=== PATIENT | male | born 1985 | race Caucasian/White ===

== ENCOUNTER 2016-07-28 15:42 | Emergency (ER) | payer MEDICAID ==
[~2016-07-28] VITALS: Ht 200.7 cm; Wt 97.5 kg
--- NOTE | 2016-07-28 16:20 | ED GI ---
General Chief Complaint: Rect Problems Stated Complaint: BLOOD IN STOOL Nursing Triage Note: Pt reports having large amount red blood in BM last night and 2 more this AM. Pt has been on anti-inflammatory medication x 2 weeks for joint inflammation. denies abd pain, cramping, or n/v/diarrhea. Sepsis Screen: No Definite Risk History of Present Illness Time Seen By Provider: 16:00 Initial Comments Evaluation for 3 stools in last 24 hours with visible blood in stools and toilet. He denies any abdominal pain, distention, or concerns. He's had no nausea vomiting or diarrhea. He does report a history of constipation and having to strain to have bowel movements. He was recently started on anti- inflammatory for arthritis and physical therapy. He is currently unemployed. He has very little water intake in his diet he mainly drink Sprite. He also eats very few vegetables and fruits, dislikes yogurt. He has been told to increase fiber in his diet on multiple occasions. His mother had similar symptoms several years ago and required a colonoscopy which found anal fissures and no other pathology. Current medications include meloxicam and omeprazole. Timing/Duration: 1-2 Days Severity/Quality: Mild Activities at Onset: None Associated Symptoms: Denies Symptoms, No Back Pain, No Fever/Chills, No Fatigue , No Nausea/Vomiting, No Weakness Allergies and Home Medications Allergies Coded Allergies: No Known Drug Allergies (Unverified , 07/28/16) Review of Systems Constitutional: no symptoms reported, see HPI EENTM: No Symptoms Reported, See HPI Respiratory: No Symptoms Reported, See HPI Cardiovascular: No Symptoms Reported, See HPI Gastrointestinal: See HPI, Denies Abdomen Distended, Denies Abdominal Pain, Blood Streaked Stools, Denies Constipated, Denies Diarrhea, Denies Nausea, Denies Poor Appetite, Denies Poor Fluid Intake, Rectal Bleeding, Denies Vomiting Genitourinary: No Symptoms Reported, See HPI Musculoskeletal: no symptoms reported, see HPI Skin: no symptoms reported, see HPI Psychiatric/Neurological: No Symptoms Reported, See HPI Endocrine: No Symptoms Reported, See HPI Hematologic/Lymphatic: No Symptoms Reported, See HPI All Other Systems Reviewed Negative Unless Noted: Yes Past Vxabjmz-Yehwtj-Vfjlqy Hx Patient Social History Alcohol Use: Rarely Uses Recreational Drug Use: No Smoking Status: Never a Smoker 2nd Hand Smoke Exposure: No Recent Foreign Travel: No Contact w/Someone Who Travel: No Recent Infectious Disease Expo: No Recent Hopitalizations: No Immunizations Up To Date Tetanus Booster (TDap): Less than 5yrs Seasonal Allergies Seasonal Allergies: Yes Gastrointestinal Gastrointestinal Disorders: Gastroesophageal Reflux, Chronic Constipation Musculoskeletal Musculoskeletal Disorders: Arthritis Reviewed Nursing Assessment Reviewed/Agree w Nursing PMH: Yes Physical Exam Vital Signs VS - Last 72 Hours, by Label 07/28/16 15:47 Pulse 53 Resp 18 B/P (MAP) 134/83 O2 Delivery Room Air Capillary Refill : Less Than 3 Seconds General Appearance: WD/WN, no apparent distress Neck: non-tender, full range of motion, supple, normal inspection Respiratory: chest non-tender, lungs clear, normal breath sounds, no respiratory distress, no accessory muscle use Cardiovascular: normal peripheral pulses, regular rate, rhythm, no edema, no murmur Gastrointestinal: normal bowel sounds, non tender, soft, no organomegaly, No distended, No guarding, No rebound Extremities: normal range of motion, non-tender, normal inspection, no pedal edema, no calf tenderness, normal capillary refill Neurologic/Psychiatric: no motor/sensory deficits, alert, normal mood/affect, oriented x 3 Skin: normal color, warm/dry Lymphatic: no adenopathy Progress/Results/Core Measures Results/Orders Lab Results Laboratory Tests Test 07/28/16 16:31 Range/Units White Blood Count 6.3 4.3-11.0 10^3/uL Red Blood Count 4.76 4.35-5.85 10^6/uL Hemoglobin 14.0 13.3-17.7 G/DL Hematocrit 43 40-54 % Mean Corpuscular Volume 89 80-99 FL Mean Corpuscular Hemoglobin 29 25-34 PG Mean Corpuscular Hemoglobin Concent 33 32-36 G/DL Red Cell Distribution Width 12.7 10.0-14.5 % Platelet Count 205 130-400 10^3/uL Mean Platelet Volume 10.0 7.4-10.4 FL Neutrophils (%) (Auto) 62 42-75 % Lymphocytes (%) (Auto) 28 12-44 % Monocytes (%) (Auto) 10 0-12 % Eosinophils (%) (Auto) 1 0-10 % Basophils (%) (Auto) 0 0-10 % Neutrophils # (Auto) 3.9 1.8-7.8 X 10^3 Lymphocytes # (Auto) 1.7 1.0-4.0 X 10^3 Monocytes # (Auto) 0.6 0.0-1.0 X 10^3 Eosinophils # (Auto) 0.1 0.0-0.3 10^3/uL Basophils # (Auto) 0.0 0.0-0.1 10^3/uL Sodium Level 141 135-145 MMOL/L Potassium Level 4.0 3.6-5.0 MMOL/L Chloride Level 109 H 98-107 MMOL/L Carbon Dioxide Level 24 21-32 MMOL/L Anion Gap 8 5-14 MMOL/L Blood Urea Nitrogen 15 7-18 MG/DL Creatinine 1.18 0.60-1.30 MG/DL Estimat Glomerular Filtration Rate > 60 BUN/Creatinine Ratio 13 Glucose Level 90 70-105 MG/DL Calcium Level 9.3 8.5-10.1 MG/DL Total Bilirubin 0.8 0.1-1.0 MG/DL Aspartate Amino Transf (AST/SGOT) 20 5-34 U/L Alanine Aminotransferase (ALT/SGPT) 20 0-55 U/L Alkaline Phosphatase 33 L 40-136 U/L Total Protein 7.2 6.4-8.2 G/DL Albumin 4.2 3.2-4.5 G/DL My Orders Orders - ELLY ROBBINS Cbc With Automated Diff (07/28/16 16:18) Comprehensive Metabolic Panel (07/28/16 16:18) Vital Signs/I&O Vital Sign - Last 12Hours 07/28/16 15:47 Pulse 53 Resp 18 B/P (MAP) 134/83 O2 Delivery Room Air Blood Pressure Mean: 100 Progress Note : Time: 16:00 Progress Note Evaluation completed, recommended obtaining a CBC and CMP. Will reevaluate after these are completed. 1700 discussed results of labs which were essentially normal showing no signs of anemia. Discussed that the possible causes could be anal fissures or hemorrhoids secondary to his constipation. However with the bleeding I would recommend stopping the anti-inflammatories at this time. He verbalized understanding this discussed ways to help illuminate the constipation and he will consider these. He will follow-up with Dr. Cardona for other treatment options for his arthritis, until then he can use Tylenol. Departure Impression Impression: Primary Impression: Blood in stool Disposition: HOME, SELF-CARE Condition: Stable Departure-Patient Inst. Decision time for Depature: 16:45 Referrals: NATTY CARDONA MD (PCP) Primary Care Physician [facility] (Family) Primary Care Physician Patient Instructions: Bloody Stools, Adult (DC), Anal Fissure (DC), Hemorrhoids (DC) Add. Discharge Instructions: Increase fiber and water in diet. Start taking Probiotic, over the counter. Stop taking anti-inflammatory, use Tylenol 650 mg every 6 hours as needed. Keep follow-up appointment Dr. Cardona to consider additional treatment as needed. Return to emergency department if bleeding becomes more profuse, any dizziness or change in level of consciousness, new problems or concerns All discharge instructions reviewed with patient and/or family. Voiced understanding. Copy Copies To 1: NATTY CARDONA MD, AMY ARNP Jul 28, 2016 16:20
[2016-07-28 16:40] LABS: BASOPHILS % (AUTO) 0 % (0-10); EOSINOPHILS # (AUTO) 0.1 10^3/uL (0.0-0.3); EOSINOPHILS % (AUTO) 1 % (0-10); LYMPHOCYTES # (AUTO) 1.7 X 10^3 (1.0-4.0); LYMPHOCYTES % (AUTO) 28 % (12-44); MEAN CORPUSCULAR HEMOGLOBIN 29 PG (25-34); MEAN CORPUSCULAR HGB CONC 33 G/DL (32-36); MEAN CORPUSCULAR VOLUME 89 FL (80-99); MONOCYTES # (AUTO) 0.6 X 10^3 (0.0-1.0); MONOCYTES % (AUTO) 10 % (0-12); NEUTROPHILS # (AUTO) 3.9 X 10^3 (1.8-7.8); NEUTROPHILS % (AUTO) 62 % (42-75); PLATELET COUNT 205 10^3/uL (130-400); RED BLOOD COUNT 4.76 10^6/uL (4.35-5.85); RED CELL DISTRIBUTION WIDTH 12.7 % (10.0-14.5); WHITE BLOOD COUNT 6.3 10^3/uL (4.3-11.0)
[2016-07-28 16:55] LABS: ALANINE AMINOTRANSFERASE 20 U/L (0-55); ALBUMIN 4.2 G/DL (3.2-4.5); ANION GAP 8 MMOL/L (5-14); ASPARTATE AMINO TRANSFERASE 20 U/L (5-34); BILIRUBIN,TOTAL 0.8 MG/DL (0.1-1.0); BLOOD UREA NITROGEN 15 MG/DL (7-18); BUN/CREATININE RATIO 13; CALCIUM 9.3 MG/DL (8.5-10.1); CARBON DIOXIDE 24 MMOL/L (21-32); CHLORIDE 109 MMOL/L (98-107); CREATININE SERUM 1.18 MG/DL (0.60-1.30); GFR ESTIMATED > 60; GLUCOSE 90 MG/DL (70-105); SODIUM 141 MMOL/L (135-145); TOTAL PROTEIN 7.2 G/DL (6.4-8.2)
[2016-07-28 18:00] VITALS: BP 134/83
[2016-07-29] MEDS ORDERED: HYDR-757 PO (11:00)
== END 2016-07-28 18:00 | disposition home or self-care (01) ==
LOC: EDUNIT# 15:42 → ER 15:43
DX: K92.1 Melena (principal); K21.9 Gastro-esophageal reflux disease without esophagitis
CPT/HCPCS: 36415; 80053; 85025; 99282

== ENCOUNTER 2016-07-29 10:31 | Emergency (ER) | payer MEDICAID ==
[~2016-07-29] VITALS: Ht 200.7 cm; Wt 97.5 kg
--- NOTE | 2016-07-29 10:48 | ED Lower Extremity ---
General Stated Complaint: R BIG TOE PAIN,BRUISING Source: patient Exam Limitations: no limitations History of Present Illness Time seen by provider: 10:47 Initial Comments To ER with limited mobility and bruising of the right great toe after stubbing it on his front porch yesterday. Onset: yesterday Severity: moderate Pain/Injury Location: right 1st toe Method of Injury: unknown Modifying Factors: Worse With Movement Allergies and Home Medications Allergies Coded Allergies: No Known Drug Allergies (Unverified , 07/28/16) Home Medications Hydrocodone/Acetaminophen 1 Each Tablet, 1 EACH PO Q4H PRN for PAIN-MODERATE TO SEVERE, #10 Prescribed by: ARLYN GUILLERMO on 07/29/16 1100 Time Seen by Provider: 10:47 Constitutional: see HPI EENTM: see HPI Respiratory: no symptoms reported Cardiovascular: no symptoms reported Genitourinary: no symptoms reported Musculoskeletal: see HPI Skin: no symptoms reported Psychiatric/Neurological: No Symptoms Reported Past Chpjlhw-Uotclu-Wohcvv Hx Patient Social History 2nd Hand Smoke Exposure: No Recent Foreign Travel: No Contact w/Someone Who Travel: No Recent Hopitalizations: No Immunizations Up To Date Tetanus Booster (TDap): Less than 5yrs Seasonal Allergies Seasonal Allergies: Yes Gastrointestinal Gastrointestinal Disorders: Gastroesophageal Reflux, Chronic Constipation Musculoskeletal Musculoskeletal Disorders: Arthritis Physical Exam Vital Signs Vital Sign - Last 12Hours 07/29/16 10:38 Temp 98.0 Pulse 46 Resp 16 B/P (MAP) 134/79 Pulse Ox 97 O2 Delivery Room Air Capillary Refill : General Appearance: WD/WN, no apparent distress HEENT: PERRL/EOMI, normal ENT inspection Neck: non-tender, full range of motion Respiratory: normal breath sounds, no respiratory distress, no accessory muscle use Gastrointestinal: normal bowel sounds, non tender, soft Hips: bilateral hip non-tender, bilateral hip normal inspection, bilateral hip normal range of motion Legs: bilateral leg non-tender, bilateral leg normal inspection, bilateral leg normal range of motion Knees: bilateral knee non-tender, bilateral knee normal inspection, bilateral knee normal range of motion Ankles: bilateral ankle non-tender, bilateral ankle normal inspection, bilateral ankle normal range of motion Feet: right foot pain, right foot soft tissue tenderness, right foot other ( ecchymosis to the dorsal aspect of the right great toe) Neurologic/Psychiatric: alert, normal mood/affect, oriented x 3 Skin: normal color, warm/dry Progress/Results/Core Measures Results/Orders My Orders Orders - ARLYN GUILLERMO APRN Foot, Right, 3 View (07/29/16 10:46) Vital Signs/I&O Vital Sign - Last 12Hours 07/29/16 07/29/16 10:38 11:05 Temp 98.0 98.0 Pulse 46 46 Resp 16 16 B/P (MAP) 134/79 Pulse Ox 97 97 O2 Delivery Room Air Departure Impression Impression: Primary Impression: Toe fracture Disposition: HOME, SELF-CARE Condition: Stable Departure-Patient Inst. Decision time for Depature: 10:48 Referrals: NATTY LEVINE MD (PCP) Primary Care Physician [facility] (Family) Primary Care Physician IRMA SCHOFIELD DPM, CORIN Q DPM Patient Instructions: Toe Fracture (DC) Add. Discharge Instructions: 1. Keep the great toe nahid taped to the toe next to it for the next 3 weeks. 2. Ice pack 3. Pain medication as directed and return to ER for any worsening 4. If pain and limited mobility persists beyond the initial 3 weeks, follow-up with one of the foot specialists listed. Scripts Hydrocodone/Acetaminophen (Rough And Ready 5-325 Tablet) 1 Each Tablet 1 EACH PO Q4H Y for PAIN-MODERATE TO SEVERE, #10 TAB Prov: ARLYN GUILLERMO APRN 07/29/16 ARLYN GUILLERMO APRN Jul 29, 2016 10:48
[2016-07-29] MEDS ORDERED: HYDR-757 PO (11:00)
[2016-07-29 11:05] VITALS: BP 134/79
--- NOTE | 2016-07-29 11:09 | Diagnostic Imaging Report ---
Three views of the right foot. INDICATION: Injury. FINDINGS: There is a 3 mm bony fragment seen along the dorsomedial aspect of the base of the distal phalanx of the great toe. This is only seen on the oblique view and it has margins in favor of an acute fracture. This involves the dorsal medial aspect of the articular surface. The rest of the distal phalanx and interphalangeal joints appear unremarkable. No other fracture seen. IMPRESSION: 3 mm nondisplaced fracture along the dorsal medial aspect of the base of the distal phalanx of the great toe. Dictated by: Dictated on workstation # [id number]
== END 2016-07-29 11:05 | disposition home or self-care (01) ==
LOC: EDUNIT# 10:31 → ER 10:33
DX: S92.403A Displaced unspecified fracture of unspecified great toe, initial encounter for closed fracture (principal); W20.8XXA Other cause of strike by thrown, projected or falling object, initial encounter
CPT/HCPCS: 73630; 99283

== ENCOUNTER 2016-08-13 11:26 | Outpatient (RCR) | payer MEDICAID ==
[~2016-08-13 11:26] MED LIST: HYDR-757 PO
== END 2016-09-28 15:20 | disposition home or self-care (01) ==
PROVIDERS: ATTEND Family Medicine
DX: M54.5 Low back pain (principal)

== ENCOUNTER 2021-07-16 20:02 | Emergency (ER) | payer MEDICAID ==
[~2021-07-16] VITALS: Ht 204.2 cm; Wt 98.0 kg
[~2021-07-16 20:02] MED LIST changes: +HYDR-4226 PO; -HYDR-757 PO
[2021-07-16 21:18] LABS: BILIRUBIN,URINE NEGATIVE (NEGATIVE); CLARITY,URINE CLEAR; COLOR,URINE DARK YELLOW; GLUCOSE, URINE (UA) NEGATIVE (NEGATIVE); KETONES,URINE NEGATIVE (NEGATIVE); LEUKOCYTE ESTERASE ,URINE NEGATIVE (NEGATIVE); NITRITE,URINE NEGATIVE (NEGATIVE); PROTEIN,URINE NEGATIVE (NEGATIVE)
[2021-07-16 21:26] LABS: BASOPHILS % (AUTO) 1 % (0-10); EOSINOPHILS % (AUTO) 1 % (0-10); HEMATOCRIT 45 % (40-54); HEMOGLOBIN 15.1 g/dL (13.3-17.7); LYMPHOCYTES # (AUTO) 0.4 10^3/uL (1.0-4.0); LYMPHOCYTES % (AUTO) 6 % (12-44); MEAN CORPUSCULAR HEMOGLOBIN 30 pg (25-34); MEAN CORPUSCULAR HGB CONC 34 g/dL (32-36); MEAN CORPUSCULAR VOLUME 88 fL (80-99); MEAN PLATELET VOLUME 9.4 fL (9.0-12.2); MONOCYTES # (AUTO) 0.8 10^3/uL (0.0-1.0); MONOCYTES % (AUTO) 13 % (0-12); NEUTROPHILS # (AUTO) 4.8 10^3/uL (1.8-7.8); NEUTROPHILS % (AUTO) 80 % (42-75); PLATELET COUNT 184 10^3/uL (130-400); WHITE BLOOD COUNT 6.1 10^3/uL (4.3-11.0)
[2021-07-16 21:30] LABS: BACTERIA,URINE NEGATIVE /HPF; WBC,URINE 0-2 /HPF
[2021-07-16 21:34] LABS: ALBUMIN 4.6 GM/DL (3.2-4.5); CHLORIDE 101 MMOL/L (98-107); POTASSIUM 4.1 MMOL/L (3.6-5.0); SODIUM 137 MMOL/L (135-145)
[2021-07-16 21:35] LABS: CALCIUM 9.6 MG/DL (8.5-10.1)
[2021-07-16 21:37] LABS: GLUCOSE 100 MG/DL (70-105); TOTAL PROTEIN 7.8 GM/DL (6.4-8.2)
[2021-07-16 21:38] LABS: CARBON DIOXIDE 22 MMOL/L (21-32)
[2021-07-16 21:40] LABS: ALKALINE PHOSPHATASE 42 U/L (40-136); CREATININE SERUM 1.23 MG/DL (0.60-1.30); GFR ESTIMATED 77
[2021-07-16 21:41] LABS: BUN/CREATININE RATIO 8
[2021-07-16 21:43] LABS: ALANINE AMINOTRANSFERASE 22 U/L (0-55)
[2021-07-16 21:43] LABS: AMPHETAMINE SCREEN, URINE NEGATIVE (NEGATIVE); BARBITURATE SCREEN URINE NEGATIVE (NEGATIVE); BENZODIAZEPINES SCREEN URINE NEGATIVE (NEGATIVE); CANNABINOID SCREEN, URINE NEGATIVE (NEGATIVE); COCAINE SCREEN URINE NEGATIVE (NEGATIVE); METHADONE STAT NEGATIVE (NEGATIVE); OPIATE SCREEN URINE NEGATIVE (NEGATIVE); OXYCODONE STAT NEGATIVE (NEGATIVE); PROPOXYPHENE STAT NEGATIVE (NEGATIVE); TRICYCLIC ANTIDEPRESSANTS SCRE NEGATIVE (NEGATIVE)
[2021-07-16 21:54] LABS: EOSINOPHILS % (MANUAL) 2 %; LYMPHOCYTES % (MANUAL) 5 %; MONOCYTES % (MANUAL) 11 %; NEUTROPHILS % (MANUAL) 82 %; RBC MORPH NORMAL
[2021-07-16 21:55] LABS: ERYTHROCYTE SEDIMENTATION RATE 7 MM/HR (0-15)
--- NOTE | 2021-07-16 23:04 | ED General ---
General Chief Complaint: General Problems/Pain Stated Complaint: FATIGUE, BODY ACHES Nursing Triage Note: Pt to ER with complaints of generalized weakness/malaise onset 07/10/2021 after being bit by a tick. Pt reports that after removing the tick, he went to urgent care to ensure he removed the head and quick care confirmed complete removal. Since being bit, pt reports that symptoms have slowly been getting worse since. Pt is A/O x4 and 96% on Room Air. Source of Information: Patient History of Present Illness Date Seen by Provider: July 16, 2021 Allergies and Home Medications Allergies Coded Allergies: No Known Drug Allergies (Unverified , 07/28/16) Patient Home Medication List Hydrocodone/Acetaminophen (Hydrocodone/Acetaminophen 5 MG/325 MG TAB) 1 Each Tablet, 1 EACH PO Q4H PRN for PAIN-MODERATE TO SEVERE Prescribed by: ARLYN GUILLERMO on 07/29/16 1100 Past Hjwnpps-Catngn-Yukvng Hx Patient Social History Tobacco Use?: No Smoking Status: Never a Smoker Smokeless Tobacco Frequency: Never a User Use of E-Cig and/or Vaping dev: No Use of E-Cig and/or Vaping Edu: Never a User Substance use?: No Alcohol Use?: Yes Alcohol Frequency: Rarely Pt feels they are or have been: No Immunizations Up To Date Tetanus Booster (TDap): Less than 5yrs Influenza Vaccine Up-to-Date: No; Not Current Seasonal Allergies Seasonal Allergies: Yes Past Medical History Surgeries: No Respiratory: No Cardiac: No Neurological: No Genitourinary: No Gastrointestinal: Yes Gastroesophageal Reflux, Chronic Constipation Arthritis Endocrine: No HEENT: No Cancer: No Psychosocial: No Integumentary: No Blood Disorders: No Physical Exam Vital Signs Vital Signs - First Documented 07/16/21 20:40 Temp 37.2 Pulse 99 Resp 18 B/P (MAP) 118/85 (96) Pulse Ox 96 O2 Delivery Room Air Capillary Refill : Less Than 3 Seconds Height, Weight, BMI Height: 6'7.00" Weight: 215lbs. oz. 97.540040zr; 23.00 BMI Method:Stated Progress/Results/Core Measures Suspected Sepsis SIRS Temperature: Pulse: 99 Respiratory Rate: 18 Laboratory Tests 07/16/21 21:16: White Blood Count 6.1 Blood Pressure 118 /85 Mean: 96 Laboratory Tests 5/25/22 21:16: Creatinine 1.23, Platelet Count 184, Total Bilirubin 1.0 Results/Orders Lab Results Laboratory Tests Test 07/16/21 21:06 07/16/21 21:10 07/16/21 21:16 Range/Units Influenza Type A (RT-PCR) Not Detected Not Detecte Influenza Type B (RT-PCR) Not Detected Not Detecte SARS-CoV-2 RNA (RT-PCR) Detected H Not Detecte Urine Color DARK YELLOW Urine Clarity CLEAR Urine pH 6.0 5-9 Urine Specific [place] 1.020 1.016-1.022 Urine Protein NEGATIVE NEGATIVE Urine Glucose (UA) NEGATIVE NEGATIVE Urine Ketones NEGATIVE NEGATIVE Urine Nitrite NEGATIVE NEGATIVE Urine Bilirubin NEGATIVE NEGATIVE Urine Urobilinogen 0.2 < = 1.0 MG/DL Urine Leukocyte Esterase NEGATIVE NEGATIVE Urine RBC (Auto) NEGATIVE NEGATIVE Urine RBC NONE /HPF Urine WBC 0-2 /HPF Urine Squamous Epithelial Cells NONE /HPF Urine Renal Epithelial Cells NONE /HPF Urine Crystals NONE /LPF Urine Bacteria NEGATIVE /HPF Urine Casts NONE /LPF Urine Mucus MODERATE H /LPF Urine Culture Indicated NO Urine Opiates Screen NEGATIVE NEGATIVE Urine Oxycodone Screen NEGATIVE NEGATIVE Urine Methadone Screen NEGATIVE NEGATIVE Urine Propoxyphene Screen NEGATIVE NEGATIVE Urine Barbiturates Screen NEGATIVE NEGATIVE Ur Tricyclic Antidepressants Screen NEGATIVE NEGATIVE Urine Phencyclidine Screen NEGATIVE NEGATIVE Urine Amphetamines Screen NEGATIVE NEGATIVE Urine Methamphetamines Screen NEGATIVE NEGATIVE Urine Benzodiazepines Screen NEGATIVE NEGATIVE Urine Cocaine Screen NEGATIVE NEGATIVE Urine Cannabinoids Screen NEGATIVE NEGATIVE White Blood Count 6.1 4.3-11.0 10^3/uL Red Blood Count 5.06 4.30-5.52 10^6/uL Hemoglobin 15.1 13.3-17.7 g/dL Hematocrit 45 40-54 % Mean Corpuscular Volume 88 80-99 fL Mean Corpuscular Hemoglobin 30 25-34 pg Mean Corpuscular Hemoglobin Concent 34 32-36 g/dL Red Cell Distribution Width 12.3 10.0-14.5 % Platelet Count 184 130-400 10^3/uL Mean Platelet Volume 9.4 9.0-12.2 fL Immature Granulocyte % (Auto) 0 % Neutrophils (%) (Auto) 80 H 42-75 % Lymphocytes (%) (Auto) 6 L 12-44 % Monocytes (%) (Auto) 13 H 0-12 % Eosinophils (%) (Auto) 1 0-10 % Basophils (%) (Auto) 1 0-10 % Neutrophils # (Auto) 4.8 1.8-7.8 10^3/uL Lymphocytes # (Auto) 0.4 L 1.0-4.0 10^3/uL Monocytes # (Auto) 0.8 0.0-1.0 10^3/uL Eosinophils # (Auto) 0.0 0.0-0.3 10^3/uL Basophils # (Auto) 0.0 0.0-0.1 10^3/uL Immature Granulocyte # (Auto) 0.0 0.0-0.1 10^3/uL Neutrophils % (Manual) 82 % Lymphocytes % (Manual) 5 % Monocytes % (Manual) 11 % Eosinophils % (Manual) 2 % Blood Morphology Comment NORMAL Erythrocyte Sedimentation Rate 7 0-15 MM/HR Sodium Level 137 135-145 MMOL/L Potassium Level 4.1 3.6-5.0 MMOL/L Chloride Level 101 98-107 MMOL/L Carbon Dioxide Level 22 21-32 MMOL/L Anion Gap 14 5-14 MMOL/L Blood Urea Nitrogen 10 7-18 MG/DL Creatinine 1.23 0.60-1.30 MG/DL Estimat Glomerular Filtration Rate 77 BUN/Creatinine Ratio 8 Glucose Level 100 70-105 MG/DL Calcium Level 9.6 8.5-10.1 MG/DL Corrected Calcium 8.5-10.1 MG/DL Magnesium Level 2.0 1.6-2.4 MG/DL Total Bilirubin 1.0 0.1-1.0 MG/DL Aspartate Amino Transf (AST/SGOT) 24 5-34 U/L Alanine Aminotransferase (ALT/SGPT) 22 0-55 U/L Alkaline Phosphatase 42 40-136 U/L C-Reactive Protein High Sensitivity 0.68 H 0.00-0.50 MG/DL Total Protein 7.8 6.4-8.2 GM/DL Albumin 4.6 H 3.2-4.5 GM/DL My Orders Orders - SOFI FRANCO DO Covid 19 Inhouse Test (07/16/21 20:51) Influenza A And B By Pcr (07/16/21 20:51) Isolation Central Supply Req (07/16/21 20:51) Ed Iv/Invasive Line Start (07/16/21 20:52) Cbc With Automated Diff (07/16/21 20:52) Comprehensive Metabolic Panel (07/16/21 20:52) Hs C Reactive Protein (07/16/21 20:52) Erythrocyte Sedimentation Rate (07/16/21 20:52) Drug Screen Stat (Urine) (07/16/21 20:52) Magnesium (07/16/21 20:52) Tick Panel With Lyme Eia (07/16/21 20:52) Ua Culture If Indicated (07/16/21 20:52) Manual Differential (07/16/21 21:16) Vital Signs/I&O 07/16/21 07/16/21 20:40 23:15 Temp 37.2 Pulse 99 98 Resp 18 B/P (MAP) 118/85 (96) 128/76 Pulse Ox 96 96 O2 Delivery Room Air Room Air Capillary Refill : Less Than 3 Seconds Blood Pressure Mean: 96 Departure Impression Primary Impression: COVID-19 virus infection Disposition: 01 HOME, SELF-CARE Condition: Stable Departure-Patient Inst. Decision time for Depature: 23:00 Referrals: NATTY LEVINE MD (PCP) Primary Care Physician [facility] (Family) Primary Care Physician Patient Instructions: COVID-19 (DC), Preventing the Spread of an Infectious Disease Add. Discharge Instructions: LOTS OF CLEAR LIQUIDS--WATER, BROTH, JELLO, GATORADE--DRINK ENOUGH SO YOU ARE URINATING EVERY 2 HOURS WHILE AWAKE TYLENOL 1 GRAM + MOTRIN 800 MG 4 TIMES A DAY FOR PAIN OR FEVER OVER THE COUNTER MEDICATIONS FOR COUGH AND CONGESTION SUCH MUCINEX DM, CLARITIN, FLONASE QUARANTINE ALL HOUSEHOLD MEMBERS FOR 10 DAYS RETURN TO ER IF YOUR SYMPTOMS WORSEN FINISH YOUR DOXYCYCLINE ANTIBIOTIC. YOU WILL BE CONTACTED IF ANY OF YOUR TICK TESTS ARE POSITIVE. All discharge instructions reviewed with patient and/or family. Voiced understanding. SOFI FRANCO DO July 16, 2021 23:04
[2021-07-16 23:15] VITALS: BP 128/76
== END 2021-07-16 23:15 | disposition home or self-care (01) ==
LOC: EDUNIT# 20:02 → ER 20:04
DX: U07.1 COVID-19 (principal)
CPT/HCPCS: 36415; 80053; 80306; 81000; 83735; 85007; 85027; 85652; 86141; 86618; 86666; 86668; 86757; 87636

== ENCOUNTER 2021-09-19 09:27 | Emergency (ER) | payer MEDICAID | END 2021-09-19 11:31 | disposition left against medical advice (07) | LOC: EDUNIT# 09:27 → ER 09:28 | DX: R52 Pain, unspecified (principal) ==